=== PATIENT | female | born 1995 | race African-American/Black ===

== ENCOUNTER 2022-07-06 12:45 | Observation (INO) ==
[2022-07-06 12:51] VITALS: BMI 21.2
--- NOTE | 2022-07-06 12:59 | DR.DIZZY ---
HPI Time seen Time Seen by Provider: 07/06/22 12:57 PCP Primary Care Physician: SUZANNE HPI Comment HPI Comment: A 27 y/o female presenting via EMS with c/o a syncopal episode at home. She had nausea and vomited once. There was no abdominal pain. She states that she has been having syncopal events for the preceeding 2 months. She has no local PCP. Complaint Chief Complaint:: PT. C/O DIZZINESS AND HAVING SYNCOPAL EPISODES X A FEW MONTHS. PT. STATES SHE WAS NAUSEATED EARLIER AND VOMITED AND THEN HAD A SYNCOPE EPISODE. PT. DENIES PAIN. COVID-19 Coronavirus risk:travel/contact w/high risk person: No Has patient experienced Coronavirus symptoms: No Source History Provided: Patient and EMS Mode of Arrival Mode of Arrival: EMS Timing Onset of Chief Complaint: 06/06/22 Came on: Suddenly Context History of: Anemia Stroke Symptoms: None PMH PMH Past Medical History: Yes Past Medical History: Anemia Past Medical History Comment: SICKLE CELL Past Surgical History: Yes Surgical History: Past Surgical History Comment: Stents in Lt. Iliac Artery Family History History of Family Medical Conditions: Yes Family Medical History: Diabetes Mellitus, Cancer and Hypertension Social History Does patient currently use any type of tobacco product: No Have you used tobacco products in the last 12 months: No Type of Tobacco Use: None Does any household member use tobacco: No Alcohol Use: None Do you use any recreational Drugs:: No Lives With: Family Lives Where: Home Travel Risk Coronavirus risk:travel/contact w/high risk person: No Has patient experienced Coronavirus symptoms: No Infectious screening In the last 2 months have you had wt loss of >10#?: NO Have you had fever, night sweats or hemotysis?: No Have you traveled outside the country in the last 6 months?: No Isolation: Standard ROS Review of Systems Constitutional: No Symptoms Reported Eyes: No Symptoms Reported ENTM: No Symptoms Reported Respiratoy: No Symptoms Reported Cardiovascular: No Symptoms Reported Gastrointestinal/Abdominal: No Symptoms Reported Genitourinary: No Symptoms Reported Neurological: Other (Syncope) Musculoskeletal: No Symptoms Reported Integumentary: No Symptoms Reported Hematologic/Lymphatic: No Symptoms Reported Endocrine: No Symptoms Reported Psychiatric: No Symptoms Reported All Other Systems: Reviewed and Negative PE Vital Signs Vitals: Temperature 98.0 F Pulse Rate [Apical] 101 Pulse Rate 109 Respiratory Rate 18 Blood Pressure [Left Arm] 111/61 Blood Pressure 111/61 O2 Sat by Pulse Oximetry 98 General Limitations: No Limitations General Appearance: Alert and In No Apparent Distress Head Head Exam: Normal Inspection, Atraumatic and Normocephalic Eyes Eye exam: Normal Appearance and EOMI ENT ENT Exam: Normal Exam, Normal Oropharynx, Normal External Ear Exam and Mucous Membranes Moist Neck Neck Exam: Normal Inspection, Full ROM, Trachea Midline and Tenderness Chest Chest Inspection: Normal Inspection and Symmetric Chest Wall Rise Respiratory Respiratory Exam: Normal Lung Sounds Bilat Cardiovascular Cardiovascular Exam: Regular Rate, Normal Rhythm, Normal Heart Sounds, +S1 and +S2 Abdominal Exam Abdominal Exam: Normal Inspection, Normal Bowel Sounds and Soft Rectal Rectal Exam: Deferred Extremeties Extremities Exam: Normal Inspection and Full ROM Back Back Exam: Normal Inspection and Full ROM Neurologic Neurological Exam: Alert and Oriented X3 Psychiatric Psychiatric Exam: Normal Affect and Normal Mood Skin Skin Exam: Dry, Intact and Normal Color COURSE Treatment Treatment: her test results were discussed with her. I spoke with on-call provider (Dr. Chase) and he agrees with placing the pt. in OBS. status for transfusion of PRBCs. Reevaluation 1st: Improved Education/Counseling Education/Counseling: Patient, Education and Counseling Educated On: Treatment, Diagnosis, Prognosis and Needs for Follow Up ROR Labs Reviewed Result Diagrams: 07/06/22 13:22 07/06/22 13:22 Laboratory: WBC 10.0 X10^3/uL (3.6-10.0) 07/06/22 13:22 RBC 1.85 X10^6/uL (3.5-5.4) L 07/06/22 13:22 Hgb 4.8 g/dL (12.0-16.0) L* 07/06/22 13:22 Hct 15.0 % (36.0-47.0) L* 07/06/22 13:22 MCV 81.1 fL (80.0-100.0) 07/06/22 13:22 MCH 26.2 pg (27.0-34.0) L 07/06/22 13:22 MCHC 32.3 g/dL (33.0-35.0) L 07/06/22 13:22 RDW 21.5 % (11.6-16.5) H 07/06/22 13:22 Plt Count 546 X10^3/uL (150.0-450.0) H 07/06/22 13:22 Plt Count Comment Increased (ADEQUATE) A 07/06/22 13:22 MPV 7.9 fL (7.4-11.0) 07/06/22 13:22 Neut % (Auto) 79.4 % (42.0-75.0) H 07/06/22 13:22 Lymph % (Auto) 14.4 % (21.0-51.0) L 07/06/22 13:22 [place] % (Auto) 5.9 % (0.0-13.0) 07/06/22 13:22 Eos % (Auto) 0.1 % (0.9-2.9) L 07/06/22 13:22 Baso % (Auto) 0.2 % (0.2-1.0) 07/06/22 13:22 Neut # (Auto) 8.0 x10^3/uL (2.2-4.8) H 07/06/22 13:22 Lymph # (Auto) 1.4 X10^3/uL (1.3-2.9) 07/06/22 13:22 [place] # (Auto) 0.6 x10^3/uL (0.3-0.8) 07/06/22 13:22 Eos # (Auto) 0.0 x10^3/uL (0.0-0.2) 07/06/22 13:22 Baso # (Auto) 0.0 X10^3/uL (0.0-0.1) 07/06/22 13:22 Absolute Nucleated RBC 0.5 /100WBC 07/06/22 13:22 Plt Morphology Comment Normal (NORMAL) 07/06/22 13:22 RBC Morphology Abnormal (NORMAL) A 07/06/22 13:22 Hypochromasia 1+ A 07/06/22 13:22 Poikilocytosis 1+ A 07/06/22 13:22 Anisocytosis 1+ A 07/06/22 13:22 Ovalocytes Slight A 07/06/22 13:22 Schistocytes Slight A 07/06/22 13:22 Absolute Retic 0.0614 10^6/uL 07/06/22 13:41 Percent Retic 3.42 % (0.8-2.2) H 07/06/22 13:41 Sodium 137 mmol/L (136-145) 07/06/22 13:22 Corrected Sodium 137 mmol/L (136-145) 07/06/22 13:22 Potassium 3.8 mmol/L (3.5-5.1) 07/06/22 13:22 Chloride 105 mmol/L (98-107) 07/06/22 13:22 Carbon Dioxide 24.2 mmol/L (21-32) 07/06/22 13:22 BUN 7 mg/dL (7-18) 07/06/22 13:22 Creatinine 0.75 mg/dL (0.55-1.02) 07/06/22 13:22 Est GFR (MDRD) Af Amer > 60 (>60) 07/06/22 13:22 Est GFR (MDRD) Non-Af > 60 (>60) 07/06/22 13:22 Glucose 113 mg/dL (65-99) H 07/06/22 13:22 Calcium 8.0 mg/dL (8.5-10.1) L 07/06/22 13:22 Corrected Calcium TNP 07/06/22 13:22 Total Bilirubin < 0.10 mg/dL (0.2-1.0) L 07/06/22 13:22 AST 14 Units/L (15-37) L 07/06/22 13:22 ALT 12 Units/L (12-78) 07/06/22 13:22 Alkaline Phosphatase 75 Units/L (46-116) 07/06/22 13:22 Total Protein 6.9 g/dL (6.4-8.2) 07/06/22 13:22 Albumin 3.5 g/dL (3.4-5.0) 07/06/22 13:22 Globulin 3.4 g/dL (2.5-4.5) 07/06/22 13:22 Albumin/Globulin Ratio 1.0 Ratio (1.1-2.1) L 07/06/22 13:22 HCG, Qual Negative <10 mIU/mL 07/06/22 13:22 Crossmatch See Detail 07/06/22 13:41 EKG Rate: 106 [place]: Normal Rhythm: ST Block: None Hypertrophy: None ST: Normal Opioid Opioid Risk Tool Age (Eduardo box if 16-45): Yes History of Preadolescent Sexual Abuse: No Total: 1 Total Score Risk Category: Low Risk Copyright: Paul RUDOLPH predicting aberrant behaviors Discharge Plan Diagnosis Discharge Problem: Syncope Sickle cell anemia Qualifiers: Sickle-cell associated disorders: without crisis Qualified Code(s): D57.1 - Sickle-cell disease without crisis Discharge Plan Patient Disposition: ADMITTED INPATIENT Condition: Stable Prescriptions: No Action ferrous sulfate [FeroSul] 325 mg (65 mg iron) tablet 1 tab PO QDAY Health Concerns: Post Hospitalization: new medications and changes needed to prevent readmission or further decline. Pt educated and given instructions on all concerns. Plan of Treatment: Continue with present treatment and follow up plan. Pt is to keep follow up appointment as instructed and take medications as ordered. Orders to Discharge Patient Discharge Orders: Transfer (Routine); Ordered 07/06/22 Ordered By: GARRICK SOBOWALE Follow ups/Referrals Follow ups/Referrals: [facility],None [Primary Care Provider] - 3 days
[2022-07-06 13:50] LABS: SERUM PREGNANCY TEST, QUAL NEGATIVE <10 mIU/mL
[2022-07-06 13:54] LABS: BASOPHILS % (AUTO) 0.2 % (0.2-1.0); EOSINOPHILS % (AUTO) 0.1 % (0.9-2.9); LYMPHOCYTES # (AUTO) 1.4 X10^3/uL (1.3-2.9); LYMPHOCYTES % (AUTO) 14.4 % (21.0-51.0); MEAN CORPUSCULAR HEMOGLOBIN 26.2 pg (27.0-34.0); MEAN CORPUSCULAR HGB CONC 32.3 g/dL (33.0-35.0); MEAN CORPUSCULAR VOLUME 81.1 fL (80.0-100.0); MEAN PLATELET VOLUME 7.9 fL (7.4-11.0); MONOCYTES # (AUTO) 0.6 x10^3/uL (0.3-0.8); MONOCYTES % (AUTO) 5.9 % (0.0-13.0); NEUTROPHILS % (AUTO) 79.4 % (42.0-75.0); RED BLOOD COUNT 1.85 X10^6/uL (3.5-5.4); RED CELL DISTRIBUTION WIDTH 21.5 % (11.6-16.5)
[2022-07-06 13:56] LABS: HEMOGLOBIN 4.8 g/dL (12.0-16.0)
[2022-07-06 14:01] LABS: ANISOCYTOSIS 1+; HYPOCHROMASIA 1+; OVALOCYTES SLIGHT; PLATELET MORPHOLOGY COMMENT NORMAL (NORMAL); POIKILOCYTOSIS 1+; SCHISTOCYTES SLIGHT
[2022-07-06 14:07] LABS: ALANINE AMINOTRANSFERASE 12 Units/L (12-78); ALBUMIN 3.5 g/dL (3.4-5.0); ALKALINE PHOSPHATASE 75 Units/L (46-116); ASPARTATE AMINO TRANSFERASE 14 Units/L (15-37); BLOOD UREA NITROGEN 7 mg/dL (7-18); CARBON DIOXIDE 24.2 mmol/L (21-32); CHLORIDE 105 mmol/L (98-107); COR NA(FOR HYPERGLY) 137 mmol/L (136-145); CREATININE 0.75 mg/dL (0.55-1.02); SODIUM 137 mmol/L (136-145); TOTAL PROTEIN 6.9 g/dL (6.4-8.2); eGFR NON BLACK RACES > 60 (>60)
[2022-07-06 14:22] LABS: RETICULOCYTE % 3.42 % (0.8-2.2)
--- NOTE | 2022-07-06 14:42 | CT ---
HISTORYRECURRENT SYNCOPESTUDYBRAIN W/O CONCOMPARISONNoneTECHNIQUEMultiple axial images of the head were performed from the skull base to the vertex using standard departmental protocol. Sagittal and coronal reformatted images were performed. Dose reduction techniques including Automated Exposure Control (AEC) and adjustment of mA and kV were utilized.FINDINGSNo evidence of acute territorial infarct. No acute intracranial hemorrhage. No evidence of intracranial mass or midline shift. No hydrocephalus. No abnormal intra or extra-axial fluid collections.The calvaria is intact. Fluid in the ethmoid sinuses. Otherwise, the bilateral mastoid air cells and visualized paranasal sinuses are well pneumatized. The bilateral orbits are unremarkable.IMPRESSIONNo acute intracranial findings.Electronically signed by: DEEPAK LORENZO (Jul 06, 2022 14:40:59)
[2022-07-06] MEDS ORDERED: TYLENOL 500 MG TAB EXTRA STRENGTH PO PRN (16:08)
[2022-07-06] MEDS ORDERED: NS 100 ML IV 100 ML ONE (16:35)
[2022-07-06] MEDS ORDERED: NS 250 ML IV 250 ML IV ONE (23:25)
[2022-07-07 00:26] LABS: HEMATOCRIT 23.2 % (36.0-47.0)
[2022-07-07 00:27] LABS: HEMOGLOBIN 7.7 g/dL (12.0-16.0)
[2022-07-07 05:08] LABS: BASOPHILS # (AUTO) 0.1 X10^3/uL (0.0-0.1); BASOPHILS % (AUTO) 1.1 % (0.2-1.0); EOSINOPHILS # (AUTO) 0.1 x10^3/uL (0.0-0.2); EOSINOPHILS % (AUTO) 0.5 % (0.9-2.9); HEMATOCRIT 23.5 % (36.0-47.0); HEMOGLOBIN 8.1 g/dL (12.0-16.0); LYMPHOCYTES # (AUTO) 2.4 X10^3/uL (1.3-2.9); LYMPHOCYTES % (AUTO) 24.8 % (21.0-51.0); MEAN CORPUSCULAR HEMOGLOBIN 28.3 pg (27.0-34.0); MEAN CORPUSCULAR HGB CONC 34.6 g/dL (33.0-35.0); MEAN CORPUSCULAR VOLUME 81.7 fL (80.0-100.0); MONOCYTES # (AUTO) 0.8 x10^3/uL (0.3-0.8); MONOCYTES % (AUTO) 8.1 % (0.0-13.0); NEUTROPHILS # (AUTO) 6.3 x10^3/uL (2.2-4.8); NEUTROPHILS % (AUTO) 65.5 % (42.0-75.0); RED BLOOD COUNT 2.87 X10^6/uL (3.5-5.4); RED CELL DISTRIBUTION WIDTH 17.9 % (11.6-16.5); WHITE BLOOD COUNT 9.6 X10^3/uL (3.6-10.0)
[2022-07-07] MEDS ORDERED: FERROUS GLUCONATE PO SCH (09:00)
[2022-07-07] MEDS ORDERED: ZITHROMAX TAB 250 MG PO ONE (11:57)
[2022-07-07] MEDS ORDERED: ZOFRAN TAB 4 MG PO SCH (12:00)
[2022-07-07 15:08] VITALS: BP 115/59
--- NOTE | 2022-07-07 16:13 | RAD ---
HISTORYSOB, SYNCOPE ^CSECTION, SICKLE CELL, ANEMIA*PT HAS BODY PIERCINGSSTUDYCHEST, PA/LAT ADULTCOMPARISONNone availableFINDINGSThe trachea is midline. The cardiac silhouette is unremarkable. The lungs are clear without focal infiltrate or effusion. The bony thorax is unremarkable. There bilateral nipple ringsIMPRESSIONNo acute cardiopulmonary findings .Electronically signed by: Adeline Arita (Jul 07, 2022 16:11:39)
== END 2022-07-07 15:25 | disposition home or self-care (01) ==
LOC: ER 12:45 → MED/SURG 12:45
PROVIDERS: ADMIT Internal Medicine; ATTEND Internal Medicine
DX: R55 Syncope and collapse; D57.1 Sickle-cell disease without crisis; R06.02 Shortness of breath; R42 Dizziness and giddiness

== ENCOUNTER 2023-01-16 22:25 | Observation (INO) ==
[2023-01-16 22:40] VITALS: BMI 20.1
--- NOTE | 2023-01-16 22:48 | DR.DIZZY ---
HPI Time seen Time Seen by Provider: 01/16/23 22:48 PCP Primary Care Physician: ALPESH HPI Comment HPI Comment: PATIENT IS 27YR OLD Complaint Chief Complaint:: PT C/O WEAKNESS, NAUSEA, SHORTNESS OF BREATH, FAINT FEELING, DIZZINESS. PATIENT STATES HER SYMPTOMS HAVE BEEN GOING ON FOR APPROX 4 DAYS. COVID-19 Coronavirus risk:travel/contact w/high risk person: No Has patient experienced Coronavirus symptoms: No Source History Provided: Patient Mode of Arrival Mode of Arrival: Ambulatory Timing Onset of Chief Complaint: 01/12/23 PMH PMH Past Medical History: Yes Past Medical History: Anemia Past Surgical History: Yes Surgical History: Family History History of Family Medical Conditions: Yes Family Medical History: Diabetes Mellitus, Cancer and Hypertension Social History Does any household member use tobacco: No Alcohol Use: None Do you use any recreational Drugs:: No Lives With: Family Lives Where: Home Travel Risk Coronavirus risk:travel/contact w/high risk person: No Has patient experienced Coronavirus symptoms: No Infectious screening In the last 2 months have you had wt loss of >10#?: NO Have you had fever, night sweats or hemotysis?: No Have you traveled outside the country in the last 6 months?: No Isolation: Standard PE Vital Signs Vitals: Temperature 99.6 F Pulse Rate 102 Pulse Rate 131 Respiratory Rate 20 Respiratory Rate 20 Blood Pressure [Right Arm] 115/59 Blood Pressure 96/62 Blood Pressure 106/57 O2 Sat by Pulse Oximetry 100 O2 Sat by Pulse Oximetry 100 ROR Labs Reviewed Result Diagrams: 01/16/23 22:50 01/16/23 22:50 Laboratory: WBC 7.6 X10^3/uL (3.6-10.0) 01/16/23 22:50 RBC 2.21 X10^6/uL (3.5-5.4) L 01/16/23 22:50 Hgb 4.3 g/dL (12.0-16.0) L* 01/16/23 22:50 Hct 13.5 % (36.0-47.0) L* 01/16/23 22:50 MCV 61.1 fL (80.0-100.0) L 01/16/23 22:50 MCH 19.5 pg (27.0-34.0) L 01/16/23 22:50 MCHC 32.0 g/dL (33.0-35.0) L 01/16/23 22:50 RDW 19.4 % (11.6-16.5) H 01/16/23 22:50 Plt Count 375 X10^3/uL (150.0-450.0) 01/16/23 22:50 Plt Count Comment Adequate (ADEQUATE) 01/16/23 22:50 MPV 8.1 fL (7.4-11.0) 01/16/23 22:50 Neut % (Auto) 52.0 % (42.0-75.0) 01/16/23 22:50 Lymph % (Auto) 36.2 % (21.0-51.0) 01/16/23 22:50 [place] % (Auto) 10.0 % (0.0-13.0) 01/16/23 22:50 Eos % (Auto) 1.3 % (0.9-2.9) 01/16/23 22:50 Baso % (Auto) 0.5 % (0.2-1.0) 01/16/23 22:50 Neut # (Auto) 3.9 x10^3/uL (2.2-4.8) 01/16/23 22:50 Lymph # (Auto) 2.7 X10^3/uL (1.3-2.9) 01/16/23 22:50 [place] # (Auto) 0.8 x10^3/uL (0.3-0.8) 01/16/23 22:50 Eos # (Auto) 0.1 x10^3/uL (0.0-0.2) 01/16/23 22:50 Baso # (Auto) 0.0 X10^3/uL (0.0-0.1) 01/16/23 22:50 Absolute Nucleated RBC 0.7 /100WBC 01/16/23 22:50 Plt Morphology Comment Normal (NORMAL) 01/16/23 22:50 RBC Morphology Abnormal (NORMAL) A 01/16/23 22:50 Hypochromasia 2+ A 01/16/23 22:50 Anisocytosis 1+ A 01/16/23 22:50 Microcytosis 2+ A 01/16/23 22:50 Target Cells 1+ A 01/16/23 22:50 Tear Drop Cells Slight A 01/16/23 22:50 Schistocytes Slight A 01/16/23 22:50 Sodium 140 mmol/L (136-145) 01/16/23 22:50 Corrected Sodium TNP 01/16/23 22:50 Potassium 3.4 mmol/L (3.5-5.1) L 01/16/23 22:50 Chloride 104 mmol/L (98-107) 01/16/23 22:50 Carbon Dioxide 25.1 mmol/L (21-32) 01/16/23 22:50 BUN 6 mg/dL (7-18) L 01/16/23 22:50 Creatinine 0.82 mg/dL (0.55-1.02) 01/16/23 22:50 Est GFR (MDRD) Af Amer > 60 (>60) 01/16/23 22:50 Est GFR (MDRD) Non-Af > 60 (>60) 01/16/23 22:50 Glucose 96 mg/dL (65-99) 01/16/23 22:50 Calcium 7.9 mg/dL (8.5-10.1) L 01/16/23 22:50 Corrected Calcium 8.5 mg/dL (8.5-10.1) 01/16/23 22:50 Total Bilirubin 0.10 mg/dL (0.2-1.0) L 01/16/23 22:50 AST 12 Units/L (15-37) L 01/16/23 22:50 ALT 11 Units/L (12-78) L 01/16/23 22:50 Alkaline Phosphatase 66 Units/L (46-116) 01/16/23 22:50 Total Protein 6.9 g/dL (6.4-8.2) 01/16/23 22:50 Albumin 3.3 g/dL (3.4-5.0) L 01/16/23 22:50 Globulin 3.6 g/dL (2.5-4.5) 01/16/23 22:50 Albumin/Globulin Ratio 0.9 Ratio (1.1-2.1) L 01/16/23 22:50 Blood Type O POSITIVE 01/16/23 22:50 Crossmatch See Detail 01/16/23 22:50 Opioid Opioid Risk Tool Age (Eduardo box if 16-45): Yes History of Preadolescent Sexual Abuse: No Total: 1 Total Score Risk Category: Low Risk Copyright: Paul RUDOLPH predicting aberrant behaviors Discharge Plan Diagnosis Discharge Problem: Symptomatic anemia, Dizziness, Weakness Discharge Plan Patient Disposition: 01 HOME, SELF-CARE Condition: Stable Orders to Discharge Patient Discharge Orders: Transfer (Routine); Ordered 01/17/23 Ordered By: OLIVER BARRAZA
[2023-01-16 23:10] LABS: BASOPHILS % (AUTO) 0.5 % (0.2-1.0); EOSINOPHILS # (AUTO) 0.1 x10^3/uL (0.0-0.2); EOSINOPHILS % (AUTO) 1.3 % (0.9-2.9); LYMPHOCYTES # (AUTO) 2.7 X10^3/uL (1.3-2.9); LYMPHOCYTES % (AUTO) 36.2 % (21.0-51.0); MEAN CORPUSCULAR HEMOGLOBIN 19.5 pg (27.0-34.0); MEAN CORPUSCULAR VOLUME 61.1 fL (80.0-100.0); MEAN PLATELET VOLUME 8.1 fL (7.4-11.0); MONOCYTES # (AUTO) 0.8 x10^3/uL (0.3-0.8); NEUTROPHILS # (AUTO) 3.9 x10^3/uL (2.2-4.8); PLATELET COUNT 375 X10^3/uL (150.0-450.0); RED BLOOD COUNT 2.21 X10^6/uL (3.5-5.4); RED CELL DISTRIBUTION WIDTH 19.4 % (11.6-16.5); WHITE BLOOD COUNT 7.6 X10^3/uL (3.6-10.0)
[2023-01-16 23:17] LABS: HEMATOCRIT 13.5 % (36.0-47.0); HEMOGLOBIN 4.3 g/dL (12.0-16.0)
[2023-01-16 23:19] LABS: ALANINE AMINOTRANSFERASE 11 Units/L (12-78); ALBUMIN 3.3 g/dL (3.4-5.0); ALKALINE PHOSPHATASE 66 Units/L (46-116); ASPARTATE AMINO TRANSFERASE 12 Units/L (15-37); BLOOD UREA NITROGEN 6 mg/dL (7-18); CALCIUM 7.9 mg/dL (8.5-10.1); CARBON DIOXIDE 25.1 mmol/L (21-32); CHLORIDE 104 mmol/L (98-107); COR CA(FOR HYPOALB) 8.5 mg/dL (8.5-10.1); CREATININE 0.82 mg/dL (0.55-1.02); GLUCOSE 96 mg/dL (65-99); POTASSIUM 3.4 mmol/L (3.5-5.1); SODIUM 140 mmol/L (136-145); TOTAL PROTEIN 6.9 g/dL (6.4-8.2); eGFR NON BLACK RACES > 60 (>60)
[2023-01-17 00:11] LABS: ANISOCYTOSIS 1+; HYPOCHROMASIA 2+; MICROCYTOSIS 2+; TARGET CELLS 1+
[2023-01-17 00:12] LABS: SCHISTOCYTES SLIGHT; TEAR DROP CELLS SLIGHT
[2023-01-17 00:13] LABS: PLATELET MORPHOLOGY COMMENT NORMAL (NORMAL)
[2023-01-17] MEDS ORDERED: NS 1,000 ML IV 1,000 ML IV SCH (01:10)
[2023-01-17] MEDS ORDERED: NS 250 ML IV 250 ML IV ONE (01:51)
[2023-01-17 04:08] VITALS: O2SAT 100
[2023-01-17] MEDS ORDERED: K-DUR TAB 20 MEQ PO PRN (06:38)
[2023-01-17] MEDS ORDERED: POTASSIUM CHL 60 MEQ/NS 0.45% 500 ML IV PRN (06:38)
[2023-01-17] MEDS ORDERED: K-RIDER 10 MEQ/NS 100 ML 10 MEQ/100 ML BAG IV PRN (06:38)
[2023-01-17] MEDS ORDERED: POTASSIUM CHL 40 MEQ/NS 0.45% 500 ML IV PRN (06:38)
[2023-01-17] MEDS ORDERED: MICRO K EXTEN CAP 10 MEQ PO PRN (06:38)
[2023-01-17] MEDS ORDERED: POTASSIUM CHLORIDE LIQ 20 MEQ UDC PO PRN (06:38)
[2023-01-17] MEDS ORDERED: KLOR-CON PO PRN (06:38)
[2023-01-17] MEDS ORDERED: COLACE CAP 100 MG PO STA (08:53)
[2023-01-17] MEDS ORDERED: LINZESS PO SCH (09:00)
[2023-01-17 09:34] LABS: BASOPHILS % (AUTO) 0.4 % (0.2-1.0); EOSINOPHILS # (AUTO) 0.1 x10^3/uL (0.0-0.2); EOSINOPHILS % (AUTO) 1.3 % (0.9-2.9); HEMOGLOBIN 7.7 g/dL (12.0-16.0); LYMPHOCYTES # (AUTO) 1.9 X10^3/uL (1.3-2.9); LYMPHOCYTES % (AUTO) 18.5 % (21.0-51.0); MEAN CORPUSCULAR HEMOGLOBIN 23.8 pg (27.0-34.0); MEAN CORPUSCULAR HGB CONC 33.5 g/dL (33.0-35.0); MEAN CORPUSCULAR VOLUME 71.1 fL (80.0-100.0); MONOCYTES # (AUTO) 0.9 x10^3/uL (0.3-0.8); MONOCYTES % (AUTO) 8.5 % (0.0-13.0); NEUTROPHILS # (AUTO) 7.3 x10^3/uL (2.2-4.8); NEUTROPHILS % (AUTO) 71.3 % (42.0-75.0); PLATELET COUNT 297 X10^3/uL (150.0-450.0); RED BLOOD COUNT 3.23 X10^6/uL (3.5-5.4); RED CELL DISTRIBUTION WIDTH 26.8 % (11.6-16.5); WHITE BLOOD COUNT 10.2 X10^3/uL (3.6-10.0)
[2023-01-17 09:48] LABS: ALANINE AMINOTRANSFERASE 13 Units/L (12-78); ALBUMIN 3.1 g/dL (3.4-5.0); ALKALINE PHOSPHATASE 64 Units/L (46-116); ASPARTATE AMINO TRANSFERASE 14 Units/L (15-37); BLOOD UREA NITROGEN 5 mg/dL (7-18); CALCIUM 8.1 mg/dL (8.5-10.1); CARBON DIOXIDE 24.6 mmol/L (21-32); CHLORIDE 106 mmol/L (98-107); COR CA(FOR HYPOALB) 8.8 mg/dL (8.5-10.1); CREATININE 0.69 mg/dL (0.55-1.02); GLUCOSE 91 mg/dL (65-99); POTASSIUM 3.9 mmol/L (3.5-5.1); SODIUM 140 mmol/L (136-145); TOTAL PROTEIN 6.6 g/dL (6.4-8.2); eGFR NON BLACK RACES > 60 (>60)
[2023-01-17 09:53] LABS: ANISOCYTOSIS 3+; HYPOCHROMASIA SLIGHT; PLATELET MORPHOLOGY COMMENT NORMAL (NORMAL)
[2023-01-17] MEDS ORDERED: INFeD or DEXFERRUM 25 MG in NS 100 ML IV 100 ML IV NR (10:00)
[2023-01-17] MEDS ORDERED: DEMEROL INJ ONE (10:26)
[2023-01-17] MEDS ORDERED: PHENERGAN INJ 25 MG IM ONE ×2 (10:27→10:49)
[2023-01-17] MEDS ORDERED: DEMEROL INJ IVP ONE (10:49)
[2023-01-17] MEDS ORDERED: DEMEROL INJ IM ONE (11:18)
[2023-01-17] MEDS ORDERED: INFeD or DEXFERRUM 975 MG in NS 500 ML IV 500 ML IV NR (11:30)
[2023-01-17] MEDS: MAGNESIUM SULFATE 1 GRAM/100 mL PREMIX 1 G/100 ML BAG IV PRN ×2 (11:53→16:05)
[2023-01-17] MEDS ORDERED: NS 100 ML IV 100 ML with VENOFER 400 MG IV NR ×2 (13:00)
[2023-01-17 16:26] VITALS: BP 107/58; PULSE 83; TEMP 98.7
== END 2023-01-17 17:58 | disposition home or self-care (01) ==
LOC: ER 22:37 → INTOOBSV 01-17 00:32 → MED/SURG 01-17 00:32
PROVIDERS: ADMIT Obstetrics & Gynecology Obstetrics; ATTEND Obstetrics & Gynecology Obstetrics
DX: D62 Acute posthemorrhagic anemia; R52 Pain, unspecified; R53.1 Weakness; E87.6 Hypokalemia; R06.02 Shortness of breath; R42 Dizziness and giddiness

== ENCOUNTER 2023-03-07 14:00 | Inpatient (IN) ==
[2023-03-07 14:08] VITALS: BMI 20.1
--- NOTE | 2023-03-07 14:38 | DR.GENAD ---
HPI Time Seen Time Seen by Provider: 03/07/23 14:37 PCP Primary Care Physician: none Complaint/Symptoms Chief Complaint Doctors Comments: 28 y/o female presents with weakness, lightheadedness over the past several days. Think her Hgb is low, has happened in the past. Looses blood from her hemorrhoids. No menses due to Depoprovera. Received blood transfusion last year. No fever, chills, URI symptoms. No bowel or bladder complaints. Not on blood thinning medicine. Chief Complaint:: pt c/o of feeling dizzy states she pasted out two days ago and heart palpatations since states this is how she feels when her iron low. no appeitite. pt denies vomiting,diarrhea states she a little nauseous when she tries to eat. COVID-19 Coronavirus risk:travel/contact w/high risk person: No Has patient experienced Coronavirus symptoms: No Nurses notes reviewed Nurses Notes Review: Yes Source History Provided: Patient Mode of Arrival Mode of Arrival: Ambulatory Timing Onset of Chief Complaint: 03/02/23 PMH PMH Past Medical History: Yes Past Medical History: Anemia Past Surgical History: Yes Surgical History: Family History History of Family Medical Conditions: Yes Family Medical History: Diabetes Mellitus, Cancer and Hypertension Social History Does patient currently use any type of tobacco product: No Have you used tobacco products in the last 12 months: No Type of Tobacco Use: None Does any household member use tobacco: No Alcohol Use: None Do you use any recreational Drugs:: No Lives With: Family Lives Where: Home Travel Risk Coronavirus risk:travel/contact w/high risk person: No Has patient experienced Coronavirus symptoms: No Infectious screening In the last 2 months have you had wt loss of >10#?: NO Have you had fever, night sweats or hemotysis?: No Have you traveled outside the country in the last 6 months?: No Isolation: Standard ROS Review of Systems Constitutional: Malaise and Weakness Eyes: No Symptoms Reported ENTM: No Symptoms Reported Respiratoy: No Symptoms Reported Cardiovascular: No Symptoms Reported Gastrointestinal/Abdominal: No Symptoms Reported Genitourinary: No Symptoms Reported Neurological: Weakness and Dizziness Musculoskeletal: No Symptoms Reported Integumentary: No Symptoms Reported All Other Systems: Reviewed and Negative PE Vital Signs Vitals: Vital Signs Temperature 98.1 F Pulse Rate 110 Pulse Rate 116 Respiratory Rate 13 Respiratory Rate 20 Blood Pressure 115/62 Blood Pressure 133/66 O2 Sat by Pulse Oximetry 100 O2 Sat by Pulse Oximetry 100 General General Appearance: Alert and In No Apparent Distress Eyes Eye exam: Normal Appearance and PERRL ENT ENT Exam: Normal Exam and Mucous Membranes Moist Neck Neck Exam: Normal Inspection Respiratory Respiratory Exam: Normal Lung Sounds Bilat; negative Accessory Muscle Use or R espiratory Distress Cardiovascular Cardiovascular Exam: Regular Rate, Normal Rhythm and Normal Heart Sounds Abdominal Exam Abdominal Exam: Normal Bowel Sounds and Soft; negative Tenderness Extremities Extremities Exam: Normal Inspection Back Back Exam: Normal Inspection Neurologic Neurological Exam: Alert, Oriented X3 and CN II-XII Intact; negative Motor Sensory Deficit Skin Skin Exam: Warm and Dry Other Exam Other Exam: Rectal - external exam shows complete ring of hemorrhoids, all about 1 cm in diameter. No active bleeding. COURSE Treatment Treatment: 28 y/o female presents with symtpoms of anemia. LAbs checked, given IV fluids. Hgb 4.1. Will admit pt for blood transfusion, [address] Yuen accepts the admission. Dr Ruiz consulted for her chronic hemorrhoids, discuss removal in near future. ROR Labs Reviewed Laboratory Results Reviewed?: Yes Result Diagrams: 03/08/23 06:01 03/08/23 06:01 Laboratory: WBC 5.9 X10^3/uL (3.6-10.0) 03/07/23 14:30 RBC 1.91 X10^6/uL (3.5-5.4) L 03/07/23 14:30 Hgb 4.1 g/dL (12.0-16.0) L* 03/07/23 14:30 Hct 13.0 % (36.0-47.0) L* 03/07/23 14:30 MCV 68.0 fL (80.0-100.0) L 03/07/23 14:30 MCH 21.6 pg (27.0-34.0) L 03/07/23 14:30 MCHC 31.8 g/dL (33.0-35.0) L 03/07/23 14:30 RDW 24.4 % (11.6-16.5) H 03/07/23 14:30 Plt Count 394 X10^3/uL (150.0-450.0) 03/07/23 14:30 Plt Count Comment Adequate (ADEQUATE) 03/07/23 14:30 MPV 8.3 fL (7.4-11.0) 03/07/23 14:30 Neut % (Auto) 66.0 % (42.0-75.0) 03/07/23 14:30 Lymph % (Auto) 23.8 % (21.0-51.0) 03/07/23 14:30 [place] % (Auto) 8.4 % (0.0-13.0) 03/07/23 14:30 Eos % (Auto) 0.7 % (0.9-2.9) L 03/07/23 14:30 Baso % (Auto) 1.1 % (0.2-1.0) H 03/07/23 14:30 Neut # (Auto) 3.9 x10^3/uL (2.2-4.8) 03/07/23 14:30 Lymph # (Auto) 1.4 X10^3/uL (1.3-2.9) 03/07/23 14:30 [place] # (Auto) 0.5 x10^3/uL (0.3-0.8) 03/07/23 14:30 Eos # (Auto) 0.0 x10^3/uL (0.0-0.2) 03/07/23 14:30 Baso # (Auto) 0.1 X10^3/uL (0.0-0.1) 03/07/23 14:30 Absolute Nucleated RBC 0.2 /100WBC 03/07/23 14:30 Plt Morphology Comment Normal (NORMAL) 03/07/23 14:30 RBC Morphology Abnormal (NORMAL) A 03/07/23 14:30 Hypochromasia 2+ A 03/07/23 14:30 Anisocytosis 3+ A 03/07/23 14:30 Microcytosis 1+ A 03/07/23 14:30 Sodium 138 mmol/L (136-145) 03/07/23 14:30 Corrected Sodium TNP 03/07/23 14:30 Potassium 3.7 mmol/L (3.5-5.1) 03/07/23 14:30 Chloride 102 mmol/L (98-107) 03/07/23 14:30 Carbon Dioxide 24.8 mmol/L (21-32) 03/07/23 14:30 BUN 5 mg/dL (7-18) L 03/07/23 14:30 Creatinine 0.78 mg/dL (0.55-1.02) 03/07/23 14:30 Est GFR (MDRD) Af Amer > 60 (>60) 03/07/23 14:30 Est GFR (MDRD) Non-Af > 60 (>60) 03/07/23 14:30 Glucose 96 mg/dL (65-99) 03/07/23 14:30 Calcium 8.5 mg/dL (8.5-10.1) 03/07/23 14:30 Corrected Calcium TNP 03/07/23 14:30 Ferritin 102 ng/mL (8-252) 03/07/23 14:30 Total Bilirubin 0.10 mg/dL (0.2-1.0) L 03/07/23 14:30 AST 32 Units/L (15-37) 03/07/23 14:30 ALT 12 Units/L (12-78) 03/07/23 14:30 Alkaline Phosphatase 79 Units/L (46-116) 03/07/23 14:30 Total Protein 7.0 g/dL (6.4-8.2) 03/07/23 14:30 Albumin 3.6 g/dL (3.4-5.0) 03/07/23 14:30 Globulin 3.4 g/dL (2.5-4.5) 03/07/23 14:30 Albumin/Globulin Ratio 1.1 Ratio (1.1-2.1) 03/07/23 14:30 Blood Type O POSITIVE 03/07/23 14:25 Antibody Screen Negative 03/07/23 14:25 Crossmatch See Detail 03/07/23 14:25 Hgb 4.1 Opioid Opioid Risk Tool Age (Eduardo box if 16-45): Yes History of Preadolescent Sexual Abuse: No Total: 1 Total Score Risk Category: Low Risk Copyright: Paul RUDOLPH predicting aberrant behaviors Discharge Plan Diagnosis Discharge Problem: Symptomatic anemia Discharge Plan Patient Disposition: 09 ADMITTED INPATIENT Condition: Stable
[2023-03-07 14:52] LABS: BASOPHILS # (AUTO) 0.1 X10^3/uL (0.0-0.1); BASOPHILS % (AUTO) 1.1 % (0.2-1.0); EOSINOPHILS % (AUTO) 0.7 % (0.9-2.9); LYMPHOCYTES # (AUTO) 1.4 X10^3/uL (1.3-2.9); LYMPHOCYTES % (AUTO) 23.8 % (21.0-51.0); MEAN CORPUSCULAR HEMOGLOBIN 21.6 pg (27.0-34.0); MEAN CORPUSCULAR HGB CONC 31.8 g/dL (33.0-35.0); MEAN PLATELET VOLUME 8.3 fL (7.4-11.0); MONOCYTES # (AUTO) 0.5 x10^3/uL (0.3-0.8); MONOCYTES % (AUTO) 8.4 % (0.0-13.0); NEUTROPHILS # (AUTO) 3.9 x10^3/uL (2.2-4.8); PLATELET COUNT 394 X10^3/uL (150.0-450.0); RED BLOOD COUNT 1.91 X10^6/uL (3.5-5.4); RED CELL DISTRIBUTION WIDTH 24.4 % (11.6-16.5); WHITE BLOOD COUNT 5.9 X10^3/uL (3.6-10.0)
[2023-03-07 15:01] LABS: ALANINE AMINOTRANSFERASE 12 Units/L (12-78); ALBUMIN 3.6 g/dL (3.4-5.0); ALKALINE PHOSPHATASE 79 Units/L (46-116); ASPARTATE AMINO TRANSFERASE 32 Units/L (15-37); BLOOD UREA NITROGEN 5 mg/dL (7-18); CALCIUM 8.5 mg/dL (8.5-10.1); CARBON DIOXIDE 24.8 mmol/L (21-32); CHLORIDE 102 mmol/L (98-107); CREATININE 0.78 mg/dL (0.55-1.02); GLUCOSE 96 mg/dL (65-99); POTASSIUM 3.7 mmol/L (3.5-5.1); SODIUM 138 mmol/L (136-145); eGFR NON BLACK RACES > 60 (>60)
[2023-03-07 15:15] LABS: HEMOGLOBIN 4.1 g/dL (12.0-16.0)
[2023-03-07 15:35] LABS: ANISOCYTOSIS 3+; HYPOCHROMASIA 2+; MICROCYTOSIS 1+; PLATELET MORPHOLOGY COMMENT NORMAL (NORMAL)
[2023-03-07] MEDS ORDERED: NS 250 ML IV 250 ML IV ONE (17:46)
[2023-03-07] MEDS: COLACE CAP 100 MG PO SCH (21:00)
--- NOTE | 2023-03-07 22:21 | DR.H&P ---
H&P History & Physical for Day of: H&P Date: 03/07/23 Chief Complaint Chief Complaint: Dizziness with lightheadedness. Allergies Allergies Allergy/AdvReac Type Severity Reaction Status Date / Time iron dextran complex AdvReac Verified 01/17/23 12:00 [From Infed] History of Present Illness History of Present Illness: This is a pleasant 28-year-old black female who presented to the [facility] emergency department earlier today. She reports for the last several days she has been feeling lightheaded and unsteady on her feet. She reports passing out to 3 days ago and she normally feels like this when she becomes anemic. She has very severe external hemorrhoids that bleed very frequently with a lot of blood loss intermittently. She has had several blood transfusions over the years because of this. The ER physician examined him and said that she had hemorrhoids all the way around her anus and somewhat ulcerated and bleeding. Because of this we had decided to go ahead and consult general surgery, Dr. Mensah for surgical intervention of this problem. She has a history of anemia in the past as well as constipation. Her hemoglobin today in the emergency department is 4.1 with a platelet count of 394,000. She is well-hydrated with a BUN of 5 and creatinine of 0.78. Past Medical History Past Medical History: Anemia Past Surgical History Surgical History: Family History Family Medical History: Diabetes Mellitus, Cancer and Hypertension Social History Does patient currently use any type of tobacco product: No Have you used tobacco products in the last 12 months: No Type of Tobacco Use: None Does any household member use tobacco: No Alcohol Use: None Drug Use: None Medications Home Medications: Home Medications Medication Instructions Recorded Confirmed Type docusate sodium 100 mg capsule 1 cap PO BID 03/07/23 03/07/23 History polyethylene glycol 3350 17 1 ea PO PRN PRN 03/07/23 03/07/23 History gram/dose oral powder (ClearLax) Labs Result Diagrams: 03/07/23 14:30 03/07/23 14:30 Labs: Laboratory WBC 5.9 X10^3/uL (3.6-10.0) 03/07/23 14:30 RBC 1.91 X10^6/uL (3.5-5.4) L 03/07/23 14:30 Hgb 4.1 g/dL (12.0-16.0) L* 03/07/23 14:30 Hct 13.0 % (36.0-47.0) L* 03/07/23 14:30 MCV 68.0 fL (80.0-100.0) L 03/07/23 14:30 MCH 21.6 pg (27.0-34.0) L 03/07/23 14:30 MCHC 31.8 g/dL (33.0-35.0) L 03/07/23 14:30 RDW 24.4 % (11.6-16.5) H 03/07/23 14:30 Plt Count 394 X10^3/uL (150.0-450.0) 03/07/23 14:30 Plt Count Comment Adequate (ADEQUATE) 03/07/23 14:30 MPV 8.3 fL (7.4-11.0) 03/07/23 14:30 Neut % (Auto) 66.0 % (42.0-75.0) 03/07/23 14:30 Lymph % (Auto) 23.8 % (21.0-51.0) 03/07/23 14:30 [place] % (Auto) 8.4 % (0.0-13.0) 03/07/23 14:30 Eos % (Auto) 0.7 % (0.9-2.9) L 03/07/23 14:30 Baso % (Auto) 1.1 % (0.2-1.0) H 03/07/23 14:30 Neut # (Auto) 3.9 x10^3/uL (2.2-4.8) 03/07/23 14:30 Lymph # (Auto) 1.4 X10^3/uL (1.3-2.9) 03/07/23 14:30 [place] # (Auto) 0.5 x10^3/uL (0.3-0.8) 03/07/23 14:30 Eos # (Auto) 0.0 x10^3/uL (0.0-0.2) 03/07/23 14:30 Baso # (Auto) 0.1 X10^3/uL (0.0-0.1) 03/07/23 14:30 Absolute Nucleated RBC 0.2 /100WBC 03/07/23 14:30 Plt Morphology Comment Normal (NORMAL) 03/07/23 14:30 RBC Morphology Abnormal (NORMAL) A 03/07/23 14:30 Hypochromasia 2+ A 03/07/23 14:30 Anisocytosis 3+ A 03/07/23 14:30 Microcytosis 1+ A 03/07/23 14:30 Sodium 138 mmol/L (136-145) 03/07/23 14:30 Corrected Sodium TNP 03/07/23 14:30 Potassium 3.7 mmol/L (3.5-5.1) 03/07/23 14:30 Chloride 102 mmol/L (98-107) 03/07/23 14:30 Carbon Dioxide 24.8 mmol/L (21-32) 03/07/23 14:30 BUN 5 mg/dL (7-18) L 03/07/23 14:30 Creatinine 0.78 mg/dL (0.55-1.02) 03/07/23 14:30 Est GFR (MDRD) Af Amer > 60 (>60) 03/07/23 14:30 Est GFR (MDRD) Non-Af > 60 (>60) 03/07/23 14:30 Glucose 96 mg/dL (65-99) 03/07/23 14:30 Calcium 8.5 mg/dL (8.5-10.1) 03/07/23 14:30 Corrected Calcium TNP 03/07/23 14:30 Ferritin 102 ng/mL (8-252) 03/07/23 14:30 Total Bilirubin 0.10 mg/dL (0.2-1.0) L 03/07/23 14:30 AST 32 Units/L (15-37) 03/07/23 14:30 ALT 12 Units/L (12-78) 03/07/23 14:30 Alkaline Phosphatase 79 Units/L (46-116) 03/07/23 14:30 Total Protein 7.0 g/dL (6.4-8.2) 03/07/23 14:30 Albumin 3.6 g/dL (3.4-5.0) 03/07/23 14:30 Globulin 3.4 g/dL (2.5-4.5) 03/07/23 14:30 Albumin/Globulin Ratio 1.1 Ratio (1.1-2.1) 03/07/23 14:30 Blood Type O POSITIVE 03/07/23 14:25 Antibody Screen Negative 03/07/23 14:25 Crossmatch See Detail 03/07/23 14:25 Review of Systems Constitutional: Weakness and Malaise Eyes: No Symptoms Reported ENT: No Symptoms Reported Respiratory: No Symptoms Reported Cardiovascular: Palpitations Gastrointestinal: Nausea, Vomiting and Hematochezia; denies Diarrhea or Melena Genitourinary: No Symptoms Reported Musculoskeletal: No Symptoms Reported Skin: No Symptoms Reported Neurological: No Symptoms Reported Physical Exam Vital Signs: Vital Signs Temperature 98.8 F Temperature 99.0 F Temperature 98.1 F Pulse Rate [Left Radial] 103 Pulse Rate [Left Radial] 103 Pulse Rate 109 Pulse Rate 104 Pulse Rate 107 Pulse Rate 110 Respiratory Rate 18 Respiratory Rate 18 Respiratory Rate 18 Respiratory Rate 17 Respiratory Rate 25 Respiratory Rate 17 Respiratory Rate 13 Blood Pressure [Right Arm] 122/71 Blood Pressure [Right Arm] 111/52 Blood Pressure 111/52 Blood Pressure 115/62 O2 Sat by Pulse Oximetry 95 O2 Sat by Pulse Oximetry 100 O2 Sat by Pulse Oximetry 100 O2 Sat by Pulse Oximetry 100 O2 Sat by Pulse Oximetry 100 O2 Sat by Pulse Oximetry 100 O2 Sat by Pulse Oximetry 100 Oriented: Normal, Time, Person and Place Eyes: Normal Ear: Normal Throat: Normal Respiratory: Clear Throughout Cardiovascular: Normal Auscultation: Bowel Sounds: Normal Palpation: Normal Tenderness: Normal Skin: Normal Musculoskeletal: Normal Psychiatric: Normal Mood Description: Calm Affect: Normal Speech Pattern: Clear and Appropriate Assessment/Plan (1) Bleeding external hemorrhoids: Status: Acute Plan: Consult general surgery, Dr. Mensah for further further evaluation and treatment. (2) Symptomatic anemia: Status: Acute Plan: Type and cross 2 units packed red blood cells and transfused. (3) Dizziness: Status: Acute Plan: Patient's dizziness should resolve once he has blood transfusion. (4) Weakness: Status: Acute Plan: Weakness should improve with transfusion of packed red blood cells. (5) Sickle cell trait: Status: Acute Review H&P Reviewed: Yes Patient was examined?: Yes
[2023-03-08 00:12] LABS: HEMATOCRIT 21.1 % (36.0-47.0)
[2023-03-08 00:16] LABS: HEMOGLOBIN 6.9 g/dL (12.0-16.0)
[2023-03-08] MEDS ORDERED: NS 100 ML IV 100 ML ONE (00:58)
[2023-03-08 06:49] LABS: BASOPHILS # (AUTO) 0.1 X10^3/uL (0.0-0.1); BASOPHILS % (AUTO) 0.8 % (0.2-1.0); EOSINOPHILS % (AUTO) 0.7 % (0.9-2.9); HEMATOCRIT 25.3 % (36.0-47.0); HEMOGLOBIN 8.5 g/dL (12.0-16.0); LYMPHOCYTES # (AUTO) 1.4 X10^3/uL (1.3-2.9); LYMPHOCYTES % (AUTO) 21.2 % (21.0-51.0); MEAN CORPUSCULAR HEMOGLOBIN 25.5 pg (27.0-34.0); MEAN CORPUSCULAR HGB CONC 33.7 g/dL (33.0-35.0); MEAN CORPUSCULAR VOLUME 75.9 fL (80.0-100.0); MEAN PLATELET VOLUME 8.2 fL (7.4-11.0); MONOCYTES # (AUTO) 0.6 x10^3/uL (0.3-0.8); NEUTROPHILS # (AUTO) 4.3 x10^3/uL (2.2-4.8); NEUTROPHILS % (AUTO) 67.3 % (42.0-75.0); PLATELET COUNT 303 X10^3/uL (150.0-450.0); RED BLOOD COUNT 3.33 X10^6/uL (3.5-5.4); RED CELL DISTRIBUTION WIDTH 23.1 % (11.6-16.5); WHITE BLOOD COUNT 6.5 X10^3/uL (3.6-10.0)
[2023-03-08 07:09] LABS: ALANINE AMINOTRANSFERASE 11 Units/L (12-78); ALBUMIN 3.5 g/dL (3.4-5.0); ALKALINE PHOSPHATASE 78 Units/L (46-116); ASPARTATE AMINO TRANSFERASE 12 Units/L (15-37); BLOOD UREA NITROGEN 8 mg/dL (7-18); CALCIUM 8.3 mg/dL (8.5-10.1); CARBON DIOXIDE 23.2 mmol/L (21-32); CHLORIDE 106 mmol/L (98-107); CREATININE 0.72 mg/dL (0.55-1.02); GLUCOSE 96 mg/dL (65-99); POTASSIUM 3.6 mmol/L (3.5-5.1); SODIUM 139 mmol/L (136-145); TOTAL PROTEIN 6.6 g/dL (6.4-8.2); eGFR NON BLACK RACES > 60 (>60)
[2023-03-08 07:25] LABS: ANISOCYTOSIS 2+; HYPOCHROMASIA 2+; MICROCYTOSIS SLIGHT; PLATELET MORPHOLOGY COMMENT NORMAL (NORMAL); SCHISTOCYTES SLIGHT
[2023-03-08 07:26] LABS: BURR CELLS SLIGHT
[2023-03-08] MEDS ORDERED: PROTONIX INJ 40 MG VIAL IVP ONE (07:57)
[2023-03-08] MEDS ORDERED: REGLAN INJ 10 MG VIAL IVP ONE (07:58)
[2023-03-08] MEDS ORDERED: REGLAN INJ 10 MG VIAL ONE (08:13)
[2023-03-08] MEDS ORDERED: PROTONIX INJ 40 MG VIAL ONE (08:13)
--- NOTE | 2023-03-08 09:11 | PCM.PROG ---
Progress Note Progress Note for Day of Date of Exam: 03/08/23 Subjective Subjective: The patient reports she feels much better this morning. When she came in yesterday her hemoglobin was 4.1 and it is 8.5 this morning after receiving 3 units of packed red blood cells. She feels much stronger and better overall since receiving the blood. The patient took 2 bites of grits this morning before the nurses stopped her and she was post to go down to the OR per Dr. Mensah. She has been made n.p.o. and general surgeon, Dr. Mensah will see her later today for consultation of her severe bleeding external hemorrhoids. Past Medical Family Social History Allergies: Allergies iron dextran complex [From Infed] Adverse Reaction (Verified 01/17/23 12:00) Review of Systems ROS: No change since H&P Vital Signs and I&O's Vital Signs: Vital Signs Temperature 98.8 F Temperature 98.7 F Temperature 98.7 F Pulse Rate [Left Radial] 66 Pulse Rate [Left Radial] 74 Pulse Rate [Left Radial] 74 Respiratory Rate 18 Respiratory Rate 16 Respiratory Rate 16 Blood Pressure [Right Arm] 113/58 Blood Pressure [Right Arm] 113/56 Blood Pressure [Right Arm] 113/56 O2 Sat by Pulse Oximetry 100 O2 Sat by Pulse Oximetry 100 O2 Sat by Pulse Oximetry 100 Intake and Output: Intake & Output 03/05/23 03/06/23 03/07/23 03/08/23 11:59 11:59 11:59 11:59 Intake Total 2531 / 2531 Balance 2531 / 2531 Physical Exam Oriented: Normal, Time, Person and Place Eyes: Normal Ear: Normal Throat: Normal Respiratory: Normal Cardiovascular: Normal Auscultation: Bowel Sounds: Normal Tenderness: Normal Skin: Normal Musculoskeletal: Normal Psychiatric: Normal Mood Description: Calm Affect: Normal Speech Pattern: Clear and Appropriate Laboratory and Diagnostics Result Diagrams: 03/08/23 06:01 03/08/23 06:01 Labs: Laboratory WBC 6.5 X10^3/uL (3.6-10.0) 03/08/23 06:01 RBC 3.33 X10^6/uL (3.5-5.4) L 03/08/23 06:01 Hgb 8.5 g/dL (12.0-16.0) L 03/08/23 06:01 Hct 25.3 % (36.0-47.0) L 03/08/23 06:01 MCV 75.9 fL (80.0-100.0) L 03/08/23 06:01 MCH 25.5 pg (27.0-34.0) L 03/08/23 06:01 MCHC 33.7 g/dL (33.0-35.0) 03/08/23 06:01 RDW 23.1 % (11.6-16.5) H 03/08/23 06:01 Plt Count 303 X10^3/uL (150.0-450.0) 03/08/23 06:01 Plt Count Comment Adequate (ADEQUATE) 03/08/23 06:01 MPV 8.2 fL (7.4-11.0) 03/08/23 06:01 Neut % (Auto) 67.3 % (42.0-75.0) 03/08/23 06:01 Lymph % (Auto) 21.2 % (21.0-51.0) 03/08/23 06:01 [place] % (Auto) 10.0 % (0.0-13.0) 03/08/23 06:01 Eos % (Auto) 0.7 % (0.9-2.9) L 03/08/23 06:01 Baso % (Auto) 0.8 % (0.2-1.0) 03/08/23 06:01 Neut # (Auto) 4.3 x10^3/uL (2.2-4.8) 03/08/23 06:01 Lymph # (Auto) 1.4 X10^3/uL (1.3-2.9) 03/08/23 06:01 [place] # (Auto) 0.6 x10^3/uL (0.3-0.8) 03/08/23 06:01 Eos # (Auto) 0.0 x10^3/uL (0.0-0.2) 03/08/23 06:01 Baso # (Auto) 0.1 X10^3/uL (0.0-0.1) 03/08/23 06:01 Absolute Nucleated RBC 0.3 /100WBC 03/08/23 06:01 Plt Morphology Comment Normal (NORMAL) 03/08/23 06:01 RBC Morphology Abnormal (NORMAL) A 03/08/23 06:01 Hypochromasia 2+ A 03/08/23 06:01 Anisocytosis 2+ A 03/08/23 06:01 Microcytosis Slight A 03/08/23 06:01 [place] Cells Slight A 03/08/23 06:01 Schistocytes Slight A 03/08/23 06:01 Sodium 139 mmol/L (136-145) 03/08/23 06:01 Corrected Sodium TNP 03/08/23 06:01 Potassium 3.6 mmol/L (3.5-5.1) 03/08/23 06:01 Chloride 106 mmol/L (98-107) 03/08/23 06:01 Carbon Dioxide 23.2 mmol/L (21-32) 03/08/23 06:01 BUN 8 mg/dL (7-18) 03/08/23 06:01 Creatinine 0.72 mg/dL (0.55-1.02) 03/08/23 06:01 Est GFR (MDRD) Af Amer > 60 (>60) 03/08/23 06:01 Est GFR (MDRD) Non-Af > 60 (>60) 03/08/23 06:01 Glucose 96 mg/dL (65-99) 03/08/23 06:01 Calcium 8.3 mg/dL (8.5-10.1) L 03/08/23 06:01 Corrected Calcium TNP 03/08/23 06:01 Ferritin 102 ng/mL (8-252) 03/07/23 14:30 Total Bilirubin 0.40 mg/dL (0.2-1.0) 03/08/23 06:01 AST 12 Units/L (15-37) L 03/08/23 06:01 ALT 11 Units/L (12-78) L 03/08/23 06:01 Alkaline Phosphatase 78 Units/L (46-116) 03/08/23 06:01 Total Protein 6.6 g/dL (6.4-8.2) 03/08/23 06:01 Albumin 3.5 g/dL (3.4-5.0) 03/08/23 06:01 Globulin 3.1 g/dL (2.5-4.5) 03/08/23 06:01 Albumin/Globulin Ratio 1.1 Ratio (1.1-2.1) 03/08/23 06:01 Blood Type O POSITIVE 03/07/23 14:25 Antibody Screen Negative 03/07/23 14:25 Crossmatch See Detail 03/07/23 14:25 Plan (1) Bleeding external hemorrhoids: Status: Acute Plan: Consult general surgery, Dr. Mensah for further further evaluation and treatment. (2) Symptomatic anemia: Status: Acute Narrative Support Text: Patient's hemoglobin has come up to 8.5 from 4.1 after transfusion of 3 units packed red blood cells. We do have 1 extra unit of packed red blood cells ordered and on standby however I spoke with the nurse responsible for getting blood and we may need to get another unit for our surgeon can proceed with surgery of her hemorrhoids. Plan: Monitor daily hemoglobins and transfuse as needed. Follow-up with general surgery consultation. (3) Dizziness: Status: Resolved Plan: Monitor for dizziness again and decrease in hemoglobin. (4) Weakness: Status: Resolved (5) Sickle cell trait: Status: Acute Plan: Monitor for decrease in hemoglobin.
[2023-03-08] MEDS ORDERED: LR 1,000 ML IV 1,000 ML IV ONE (09:59)
[2023-03-08] MEDS ORDERED: DIPRIVAN VIAL 20 ML ONE (10:07)
[2023-03-08] MEDS ORDERED: MARCAINE/EPINEPHRINE ONE (10:13)
[2023-03-08] MEDS ORDERED: HYDROCORTISONE CRM 1% TOP PRN (10:22)
[2023-03-08] MEDS ORDERED: BETADINE SOLN TOP PRN (10:30)
[2023-03-08] MEDS: COLACE CAP 100 MG PO SCH ×2 (12:00→20:04)
[2023-03-09 05:16] LABS: BASOPHILS % (AUTO) 0.6 % (0.2-1.0); EOSINOPHILS % (AUTO) 0.8 % (0.9-2.9); HEMOGLOBIN 8.3 g/dL (12.0-16.0); LYMPHOCYTES # (AUTO) 2.2 X10^3/uL (1.3-2.9); LYMPHOCYTES % (AUTO) 38.3 % (21.0-51.0); MEAN CORPUSCULAR HEMOGLOBIN 25.2 pg (27.0-34.0); MEAN CORPUSCULAR HGB CONC 33.2 g/dL (33.0-35.0); MEAN CORPUSCULAR VOLUME 75.9 fL (80.0-100.0); MONOCYTES # (AUTO) 0.6 x10^3/uL (0.3-0.8); MONOCYTES % (AUTO) 10.8 % (0.0-13.0); NEUTROPHILS # (AUTO) 2.9 x10^3/uL (2.2-4.8); NEUTROPHILS % (AUTO) 49.5 % (42.0-75.0); PLATELET COUNT 323 X10^3/uL (150.0-450.0); RED CELL DISTRIBUTION WIDTH 23.9 % (11.6-16.5); WHITE BLOOD COUNT 5.8 X10^3/uL (3.6-10.0)
[2023-03-09 05:30] LABS: ALANINE AMINOTRANSFERASE 12 Units/L (12-78); ALBUMIN 3.6 g/dL (3.4-5.0); ALKALINE PHOSPHATASE 79 Units/L (46-116); ASPARTATE AMINO TRANSFERASE 10 Units/L (15-37); BLOOD UREA NITROGEN 4 mg/dL (7-18); CALCIUM 8.6 mg/dL (8.5-10.1); CHLORIDE 105 mmol/L (98-107); GLUCOSE 97 mg/dL (65-99); POTASSIUM 3.3 mmol/L (3.5-5.1); SODIUM 141 mmol/L (136-145); TOTAL PROTEIN 6.8 g/dL (6.4-8.2); eGFR NON BLACK RACES > 60 (>60)
[2023-03-09 05:33] LABS: ANISOCYTOSIS 2+; HYPOCHROMASIA 1+; MICROCYTOSIS SLIGHT; PLATELET MORPHOLOGY COMMENT NORMAL (NORMAL); SCHISTOCYTES PRESENT
[2023-03-09] MEDS ORDERED: CONSULT PHARMACY - POTASSIUM & MAGNESIUM XX SCH (07:00)
[2023-03-09] MEDS: POTASSIUM CHL 40 MEQ/NS 0.45% 500 ML 40 MEQ/500 ML BAG IV ONE ×2 (08:06→09:00)
[2023-03-09] MEDS: COLACE CAP 100 MG PO SCH ×2 (08:07→21:57)
[2023-03-09] MEDS ORDERED: VERSED ONE (14:46)
[2023-03-09] MEDS ORDERED: DIPRIVAN VIAL 20 ML ONE (14:47)
[2023-03-09] MEDS ORDERED: FENTANYL VIAL INJ 100 mcg ONE ×2 (14:47→16:18)
[2023-03-09] MEDS ORDERED: QUELICIN (OR ANECTINE) ONE (14:47)
[2023-03-09] MEDS ORDERED: ZEMURON 100 MG VIAL ONE (14:48)
[2023-03-09] MEDS ORDERED: ZOFRAN INJ 4 MG VIAL ONE (14:53)
[2023-03-09] MEDS ORDERED: PEPCID 20 MG VIAL ONE (14:53)
[2023-03-09] MEDS ORDERED: REGLAN INJ 10 MG VIAL ONE (14:53)
[2023-03-09] MEDS ORDERED: LR 1,000 ML IV 1,000 ML IV ONE (15:09)
[2023-03-09] MEDS ORDERED: BETADINE SOLN ONE (15:15)
[2023-03-09] MEDS ORDERED: ANCEF VIAL 1 GRAM ONE (15:25)
[2023-03-09] MEDS ORDERED: NS 100 ML IV 100 ML ONE (15:26)
[2023-03-09 15:38] LABS: SERUM PREGNANCY TEST, QUAL NEGATIVE <10 mIU/mL
[2023-03-09] MEDS ORDERED: SUPRANE ONE (15:59)
[2023-03-09] MEDS ORDERED: BRIDION ONE (16:39)
[2023-03-09] MEDS ORDERED: DILAUDID INJ IVP PRN (16:58)
[2023-03-09] MEDS ORDERED: BENADRYL INJ 50 MG VIAL IVP PRN (16:58)
[2023-03-09] MEDS ORDERED: BARHEMSYS INJ IVP PRN (16:58)
[2023-03-09] MEDS ORDERED: ZOFRAN INJ 4 MG VIAL IVP PRN (16:58)
[2023-03-09] MEDS ORDERED: REGLAN INJ 10 MG VIAL IVP PRN (16:58)
[2023-03-09] MEDS: D5 1/2 NS 1,000 ML 1,000 ML IV SCH (18:45)
[2023-03-09] MEDS: DILAUDID INJ IVP PRN ×2 (19:07→23:44)
[2023-03-09] MEDS: ANCEF VIAL 1 GRAM IVP SCH (21:58)
[2023-03-10 01:17] VITALS: O2SAT 99
[2023-03-10] MEDS: D5 1/2 NS 1,000 ML 1,000 ML IV SCH ×2 (01:17→05:05)
[2023-03-10] MEDS: DILAUDID INJ IVP PRN ×2 (03:35→08:04)
[2023-03-10] MEDS: ANCEF VIAL 1 GRAM IVP SCH (05:03)
[2023-03-10 05:55] VITALS: BP 137/63; PULSE 67; TEMP 98.5
[2023-03-10 06:41] LABS: BASOPHILS % (AUTO) 0.6 % (0.2-1.0); EOSINOPHILS # (AUTO) 0.1 x10^3/uL (0.0-0.2); EOSINOPHILS % (AUTO) 0.7 % (0.9-2.9); HEMATOCRIT 22.5 % (36.0-47.0); HEMOGLOBIN 7.3 g/dL (12.0-16.0); LYMPHOCYTES % (AUTO) 25.8 % (21.0-51.0); MEAN CORPUSCULAR HEMOGLOBIN 24.6 pg (27.0-34.0); MEAN CORPUSCULAR HGB CONC 32.3 g/dL (33.0-35.0); MEAN CORPUSCULAR VOLUME 76.2 fL (80.0-100.0); MEAN PLATELET VOLUME 8.2 fL (7.4-11.0); MONOCYTES # (AUTO) 0.6 x10^3/uL (0.3-0.8); MONOCYTES % (AUTO) 7.8 % (0.0-13.0); NEUTROPHILS # (AUTO) 5.2 x10^3/uL (2.2-4.8); NEUTROPHILS % (AUTO) 65.1 % (42.0-75.0); PLATELET COUNT 271 X10^3/uL (150.0-450.0); RED BLOOD COUNT 2.95 X10^6/uL (3.5-5.4); RED CELL DISTRIBUTION WIDTH 24.1 % (11.6-16.5); WHITE BLOOD COUNT 7.9 X10^3/uL (3.6-10.0)
[2023-03-10 06:52] LABS: ALANINE AMINOTRANSFERASE 11 Units/L (12-78); ALBUMIN 3.2 g/dL (3.4-5.0); ALKALINE PHOSPHATASE 71 Units/L (46-116); ASPARTATE AMINO TRANSFERASE 15 Units/L (15-37); BLOOD UREA NITROGEN 3 mg/dL (7-18); CALCIUM 7.9 mg/dL (8.5-10.1); CARBON DIOXIDE 27.4 mmol/L (21-32); CHLORIDE 103 mmol/L (98-107); COR CA(FOR HYPOALB) 8.5 mg/dL (8.5-10.1); COR NA(FOR HYPERGLY) 138 mmol/L (136-145); CREATININE 0.69 mg/dL (0.55-1.02); GLUCOSE 120 mg/dL (65-99); POTASSIUM 3.1 mmol/L (3.5-5.1); SODIUM 138 mmol/L (136-145); TOTAL PROTEIN 6.1 g/dL (6.4-8.2); eGFR NON BLACK RACES > 60 (>60)
[2023-03-10 07:16] LABS: ANISOCYTOSIS 3+; PLATELET MORPHOLOGY COMMENT NORMAL (NORMAL)
--- NOTE | 2023-03-10 07:17 | PCM.PROG ---
Progress Note Progress Note for Day of Date of Exam: 03/09/23 Subjective Subjective: Patient is doing fine this morning. Her hemoglobin is currently stable. She is possibly going for hemorrhoidectomy later today. No change in treatment. Past Medical Family Social History Allergies: Allergies iron dextran complex [From Infed] Adverse Reaction (Verified 01/17/23 12:00) Review of Systems ROS: No change since H&P Vital Signs and I&O's Vital Signs: Vital Signs Temperature 98.5 F Pulse Rate [Left Radial] 67 Respiratory Rate 20 Respiratory Rate 20 Respiratory Rate 20 Respiratory Rate 20 Respiratory Rate 20 Blood Pressure [Right Arm] 137/63 O2 Sat by Pulse Oximetry 99 Intake and Output: Intake & Output 03/07/23 03/08/23 03/09/23 03/10/23 11:59 11:59 11:59 11:59 Intake Total 2581 / 2581 2209 / 2209 3103 / 3103 Output Total 520 / 520 Balance 2581 / 2581 2209 / 2209 2583 / 2583 Physical Exam Oriented: Normal, Time, Person and Place Eyes: Normal Ear: Normal Throat: Normal Respiratory: Normal Cardiovascular: Normal Auscultation: Bowel Sounds: Normal Tenderness: Normal Skin: Normal Musculoskeletal: Normal Psychiatric: Normal Mood Description: Calm Affect: Normal Speech Pattern: Clear and Appropriate Laboratory and Diagnostics Result Diagrams: 03/10/23 05:15 03/10/23 05:15 Labs: Laboratory WBC 7.9 X10^3/uL (3.6-10.0) 03/10/23 05:15 RBC 2.95 X10^6/uL (3.5-5.4) L 03/10/23 05:15 Hgb 7.3 g/dL (12.0-16.0) L 03/10/23 05:15 Hct 22.5 % (36.0-47.0) L 03/10/23 05:15 MCV 76.2 fL (80.0-100.0) L 03/10/23 05:15 MCH 24.6 pg (27.0-34.0) L 03/10/23 05:15 MCHC 32.3 g/dL (33.0-35.0) L 03/10/23 05:15 RDW 24.1 % (11.6-16.5) H 03/10/23 05:15 Plt Count 271 X10^3/uL (150.0-450.0) 03/10/23 05:15 Plt Count Comment Adequate (ADEQUATE) 03/09/23 04:58 MPV 8.2 fL (7.4-11.0) 03/10/23 05:15 Neut % (Auto) 65.1 % (42.0-75.0) 03/10/23 05:15 Lymph % (Auto) 25.8 % (21.0-51.0) 03/10/23 05:15 [place] % (Auto) 7.8 % (0.0-13.0) 03/10/23 05:15 Eos % (Auto) 0.7 % (0.9-2.9) L 03/10/23 05:15 Baso % (Auto) 0.6 % (0.2-1.0) 03/10/23 05:15 Neut # (Auto) 5.2 x10^3/uL (2.2-4.8) H 03/10/23 05:15 Lymph # (Auto) 2.0 X10^3/uL (1.3-2.9) 03/10/23 05:15 [place] # (Auto) 0.6 x10^3/uL (0.3-0.8) 03/10/23 05:15 Eos # (Auto) 0.1 x10^3/uL (0.0-0.2) 03/10/23 05:15 Baso # (Auto) 0.0 X10^3/uL (0.0-0.1) 03/10/23 05:15 Absolute Nucleated RBC 0.2 /100WBC 03/10/23 05:15 Plt Morphology Comment Normal (NORMAL) 03/09/23 04:58 RBC Morphology Abnormal (NORMAL) A 03/09/23 04:58 Hypochromasia 1+ A 03/09/23 04:58 Anisocytosis 2+ A 03/09/23 04:58 Microcytosis Slight A 03/09/23 04:58 [place] Cells Slight A 03/08/23 06:01 Schistocytes Present 03/09/23 04:58 Sodium 138 mmol/L (136-145) 03/10/23 05:15 Corrected Sodium 138 mmol/L (136-145) 03/10/23 05:15 Potassium 3.1 mmol/L (3.5-5.1) L 03/10/23 05:15 Chloride 103 mmol/L (98-107) 03/10/23 05:15 Carbon Dioxide 27.4 mmol/L (21-32) 03/10/23 05:15 BUN 3 mg/dL (7-18) L 03/10/23 05:15 Creatinine 0.69 mg/dL (0.55-1.02) 03/10/23 05:15 Est GFR (MDRD) Af Amer > 60 (>60) 03/10/23 05:15 Est GFR (MDRD) Non-Af > 60 (>60) 03/10/23 05:15 Glucose 120 mg/dL (65-99) H 03/10/23 05:15 Calcium 7.9 mg/dL (8.5-10.1) L 03/10/23 05:15 Corrected Calcium 8.5 mg/dL (8.5-10.1) 03/10/23 05:15 Magnesium 2.1 mg/dL (2.0-2.9) 03/09/23 04:58 Ferritin 102 ng/mL (8-252) 03/07/23 14:30 Total Bilirubin 0.20 mg/dL (0.2-1.0) 03/10/23 05:15 AST 15 Units/L (15-37) 03/10/23 05:15 ALT 11 Units/L (12-78) L 03/10/23 05:15 Alkaline Phosphatase 71 Units/L (46-116) 03/10/23 05:15 Total Protein 6.1 g/dL (6.4-8.2) L 03/10/23 05:15 Albumin 3.2 g/dL (3.4-5.0) L 03/10/23 05:15 Globulin 2.9 g/dL (2.5-4.5) 03/10/23 05:15 Albumin/Globulin Ratio 1.1 Ratio (1.1-2.1) 03/10/23 05:15 HCG, Qual Negative <10 mIU/mL 03/09/23 04:58 Blood Type O POSITIVE 03/07/23 14:25 Antibody Screen Negative 03/07/23 14:25 Crossmatch See Detail 03/07/23 14:25 Plan (1) Bleeding external hemorrhoids: Status: Acute Plan: Consult general surgery, Dr. Mensah for further further evaluation and treatment. (2) Symptomatic anemia: Status: Acute Plan: Monitor daily hemoglobins and transfuse as needed. Follow-up with general surgery consultation. (3) Dizziness: Status: Resolved Plan: Monitor for dizziness again and decrease in hemoglobin. (4) Weakness: Status: Resolved Plan: Weakness should improve with transfusion of packed red blood cells. (5) Sickle cell trait: Status: Acute Plan: Monitor for decrease in hemoglobin.
[2023-03-10] MEDS: COLACE CAP 100 MG PO SCH (08:03)
[2023-03-10] MEDS ORDERED: NORCO 10/325 TAB PO PRN (08:26)
[2023-03-10 08:43] VITALS: RESP 18
--- NOTE | 2023-03-10 08:53 | DR.PROGNOT ---
HOSPITAL PROGRESS NOTE Progress Note for Day of: Progress Note Date: 03/10/23 Chief Complaint Chief Complaint: doing better today .. s/p hemorrhoidectomy . no bleeding .. Past Medical Family Social History Allergies: Allergies iron dextran complex [From Infed] Adverse Reaction (Verified 01/17/23 12:00) Review Of Systems ROS: No change since H&P Vital Signs Vital Signs: Vital Signs Temperature 98.5 F Pulse Rate [Left Radial] 67 Respiratory Rate 18 Respiratory Rate 20 Respiratory Rate 20 Respiratory Rate 20 Respiratory Rate 20 Blood Pressure [Right Arm] 137/63 O2 Sat by Pulse Oximetry 99 Physical Exam Oriented: Normal, Time, Person and Place Eyes: Normal Ear: Normal Throat: Normal Respiratory: Normal Cardiovascular: Normal GI:Auscultation: Normal GI:Palpation: Normal GI: Tenderness: Normal Skin: Normal Musculoskeletal: Normal Psychiatric: Normal Mood Description: Calm Affect: Normal Speech Pattern: Clear and Appropriate Laboratory and Diagnostics Result Diagrams: 03/10/23 05:15 03/10/23 05:15 Labs: Laboratory WBC 7.9 X10^3/uL (3.6-10.0) 03/10/23 05:15 RBC 2.95 X10^6/uL (3.5-5.4) L 03/10/23 05:15 Hgb 7.3 g/dL (12.0-16.0) L 03/10/23 05:15 Hct 22.5 % (36.0-47.0) L 03/10/23 05:15 MCV 76.2 fL (80.0-100.0) L 03/10/23 05:15 MCH 24.6 pg (27.0-34.0) L 03/10/23 05:15 MCHC 32.3 g/dL (33.0-35.0) L 03/10/23 05:15 RDW 24.1 % (11.6-16.5) H 03/10/23 05:15 Plt Count 271 X10^3/uL (150.0-450.0) 03/10/23 05:15 Plt Count Comment Adequate (ADEQUATE) 03/10/23 05:15 MPV 8.2 fL (7.4-11.0) 03/10/23 05:15 Neut % (Auto) 65.1 % (42.0-75.0) 03/10/23 05:15 Lymph % (Auto) 25.8 % (21.0-51.0) 03/10/23 05:15 [place] % (Auto) 7.8 % (0.0-13.0) 03/10/23 05:15 Eos % (Auto) 0.7 % (0.9-2.9) L 03/10/23 05:15 Baso % (Auto) 0.6 % (0.2-1.0) 03/10/23 05:15 Neut # (Auto) 5.2 x10^3/uL (2.2-4.8) H 03/10/23 05:15 Lymph # (Auto) 2.0 X10^3/uL (1.3-2.9) 03/10/23 05:15 [place] # (Auto) 0.6 x10^3/uL (0.3-0.8) 03/10/23 05:15 Eos # (Auto) 0.1 x10^3/uL (0.0-0.2) 03/10/23 05:15 Baso # (Auto) 0.0 X10^3/uL (0.0-0.1) 03/10/23 05:15 Absolute Nucleated RBC 0.2 /100WBC 03/10/23 05:15 Plt Morphology Comment Normal (NORMAL) 03/10/23 05:15 RBC Morphology Abnormal (NORMAL) A 03/10/23 05:15 Hypochromasia 1+ A 03/09/23 04:58 Anisocytosis 3+ A 03/10/23 05:15 Microcytosis Slight A 03/09/23 04:58 [place] Cells Slight A 03/08/23 06:01 Schistocytes Present 03/09/23 04:58 Sodium 138 mmol/L (136-145) 03/10/23 05:15 Corrected Sodium 138 mmol/L (136-145) 03/10/23 05:15 Potassium 3.1 mmol/L (3.5-5.1) L 03/10/23 05:15 Chloride 103 mmol/L (98-107) 03/10/23 05:15 Carbon Dioxide 27.4 mmol/L (21-32) 03/10/23 05:15 BUN 3 mg/dL (7-18) L 03/10/23 05:15 Creatinine 0.69 mg/dL (0.55-1.02) 03/10/23 05:15 Est GFR (MDRD) Af Amer > 60 (>60) 03/10/23 05:15 Est GFR (MDRD) Non-Af > 60 (>60) 03/10/23 05:15 Glucose 120 mg/dL (65-99) H 03/10/23 05:15 Calcium 7.9 mg/dL (8.5-10.1) L 03/10/23 05:15 Corrected Calcium 8.5 mg/dL (8.5-10.1) 03/10/23 05:15 Magnesium 2.1 mg/dL (2.0-2.9) 03/09/23 04:58 Ferritin 102 ng/mL (8-252) 03/07/23 14:30 Total Bilirubin 0.20 mg/dL (0.2-1.0) 03/10/23 05:15 AST 15 Units/L (15-37) 03/10/23 05:15 ALT 11 Units/L (12-78) L 03/10/23 05:15 Alkaline Phosphatase 71 Units/L (46-116) 03/10/23 05:15 Total Protein 6.1 g/dL (6.4-8.2) L 03/10/23 05:15 Albumin 3.2 g/dL (3.4-5.0) L 03/10/23 05:15 Globulin 2.9 g/dL (2.5-4.5) 03/10/23 05:15 Albumin/Globulin Ratio 1.1 Ratio (1.1-2.1) 03/10/23 05:15 HCG, Qual Negative <10 mIU/mL 03/09/23 04:58 Blood Type O POSITIVE 03/07/23 14:25 Antibody Screen Negative 03/07/23 14:25 Crossmatch See Detail 03/07/23 14:25 Assessment and Plan 1: bleeding hemorrhoids . s/p hemorrhoidectomy . on Sitz bath , high fiber diet . f/u in 3 weeks . Problem Patient Problems: Patient Problems (Updated 03/08/23 @ 09:09 by SANDRA MONTEZ) Symptomatic anemia (Acute) D64.9
[2023-03-10] MEDS ORDERED: BETADINE SOLN ONE (09:30)
== END 2023-03-10 09:50 | disposition home or self-care (01) | DRG 349 ==
LOC: ER 14:00 → MED/SURG 16:08
PROVIDERS: ADMIT Family Medicine; ATTEND Family Medicine
PROC: SIGMOID (2023-03-08 11:05)